=== PATIENT | female | born 1955 ===

== ENCOUNTER → 2019-12-28 13:18 | Outpatient (REF) | payer OTHER, SELFPAY ==
[2020-01-01 02:13] LABS: SARS-CoV-2 RNA Undetected (Undetected); SARS-CoV-2 Specimen Source Nasopharynx
== END ==
LOC: NCHCN 13:18
PROVIDERS: Visit Provider Physician Assistant
DX: Z11.59 Encounter for screening for other viral diseases (principal)
CPT/HCPCS: U0003